=== PATIENT | female | born 1980 | race Caucasian/White ===

== ENCOUNTER 2017-12-21 09:40 | Emergency (ER) | payer MEDICAID ==
[~2017-12-21] VITALS: Ht 160 cm; Wt 99.3 kg
[~2017-12-21 09:40] MED LIST: ACHD5005 PO; ALBU8.5H4 IH; AMOX500C2 PO; BIRTH CONTROL; CEPH-38 PO; CEPH500C PO; CIPR500T78 PO; CLIN150C17 PO; CPR500T PO; CYCL10TA9 PO; DIPH1TAB45 PO; DOXY-182 PO; HCA25SU PR; HYDR-1231 PO; IBP800T PO; IBUP-1773 PO; LIPOSENE; LIPOZENE; METR500T PO; NAPR-243 PO; NAPR250T34 PO; NAPR550T PO; NITR-65 PO; OCP; ONDA-42 SL; ONDAN4ODT PO; PNT40TEC PO; PRM25T PO; SCR1T1 PO; SULF1TAB38 PO; TRAM-21 PO; TRM50T PO
[2017-12-21] MEDS ORDERED: DEXAMETHASONE 10 MG/ML (DECADRON) 1 ML VIAL IM STA (09:55)
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
[2017-12-21 10:12] VITALS: BP 124/78
== END 2017-12-21 10:12 | disposition home or self-care (01) ==
LOC: EDUNIT# 09:40 → ER 09:43
DX: J06.9 Acute upper respiratory infection, unspecified (principal); J45.909 Unspecified asthma, uncomplicated; F17.210 Nicotine dependence, cigarettes, uncomplicated; Z98.51 Tubal ligation status; Z87.448 Personal history of other diseases of urinary system
CPT/HCPCS: 96372; 99284

== ENCOUNTER 2018-06-01 08:06 | Emergency (ER) | payer MEDICAID ==
[~2018-06-01] VITALS: Ht 160 cm; Wt 81.6 kg
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
[2018-06-01] MEDS ORDERED: ANTACID SUSP 30 ML UDC (MYLANTA) PO ONE (08:30)
[2018-06-01] MEDS ORDERED: ONDANSETRON 4 MG (ZOFRAN) ORAL DISSOLVE TAB PO ONE (08:30)
[2018-06-01] MEDS ORDERED: LIDOCAINE 2% VISCOUS 15 ML UDC PO ONE (08:30)
[2018-06-01] MEDS ORDERED: OMEP20TA7 PO (08:45)
[2018-06-01] MEDS ORDERED: FAMO-119 PO (08:45)
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
[2018-06-01 09:00] VITALS: BP 150/80
== END 2018-06-01 09:00 | disposition home or self-care (01) ==
LOC: EDUNIT# 08:06 → ER 08:08
DX: K29.70 Gastritis, unspecified, without bleeding (principal); J45.909 Unspecified asthma, uncomplicated; F17.210 Nicotine dependence, cigarettes, uncomplicated; Z94.5 Skin transplant status; Z87.448 Personal history of other diseases of urinary system; Z98.51 Tubal ligation status; Z90.49 Acquired absence of other specified parts of digestive tract
CPT/HCPCS: 99283

== ENCOUNTER → 2018-08-07 | Outpatient (CLI) | payer MEDICAID ==
[~2018-08-07] MED LIST changes: -ACHD5005 PO; -ALBU8.5H4 IH; -AMOX500C2 PO; +BARIUM SUSPENSION 105% (LIQUID POLIBAR PLUS) 240 ML/DOSE PO ONE; +BARIUM SUSPENSION 60% (LIQUID EZ PAQUE) 240 ML DOSE PO ONE; -BIRTH CONTROL; -CEPH-38 PO; -CEPH500C PO; -CIPR500T78 PO; -CLIN150C17 PO; -CPR500T PO; -CYCL10TA9 PO; -DIPH1TAB45 PO; -DOXY-182 PO; -HCA25SU PR; -HYDR-1231 PO; -IBP800T PO; -IBUP-1773 PO; -LIPOSENE; -LIPOZENE; -METR500T PO; -NAPR-243 PO; -NAPR250T34 PO; -NAPR550T PO; -NITR-65 PO; -OCP; -ONDA-42 SL; -ONDAN4ODT PO; -PNT40TEC PO; -PRM25T PO; -SCR1T1 PO; -SULF1TAB38 PO; -TRAM-21 PO; -TRM50T PO
--- NOTE | 2018-08-07 10:58 | Diagnostic Imaging Report ---
INDICATION: Epigastric pain. FINDINGS: Patient ingested effervescent crystals as well as thin and thick barium and imaging of the esophagus, stomach and proximal small bowel was performed. The esophagus has a smooth contour. No mass or stricture is identified. No gastroesophageal reflux or hiatal hernia was demonstrated. Stomach has normal contour. There is prompt emptying of barium into the small bowel. The duodenal bulb is without deformity. No mass or ulceration is seen. Visualized small bowel loops are unremarkable. IMPRESSION: Unremarkable upper GI study. Dictated by: Dictated on workstation # [id number]
== END ==
LOC: RAD 09:04
PROVIDERS: ATTEND Family Medicine
DX: R10.13 Epigastric pain (principal)
CPT/HCPCS: 74241

== ENCOUNTER 2018-10-19 10:02 | Emergency (ER) | payer MEDICAID ==
[~2018-10-19] VITALS: Ht 160 cm; Wt 90.7 kg
[~2018-10-19 10:02] MED LIST changes: +ACHD5005 PO; +ALBU8.5H4 IH; +AMOX500C2 PO; -BARIUM SUSPENSION 105% (LIQUID POLIBAR PLUS) 240 ML/DOSE PO ONE; -BARIUM SUSPENSION 60% (LIQUID EZ PAQUE) 240 ML DOSE PO ONE; +BIRTH CONTROL; +CEPH-38 PO; +CEPH500C PO; +CIPR500T78 PO; +CLIN150C17 PO; +CPR500T PO; +CYCL10TA9 PO; +DIPH1TAB45 PO; +DOXY-182 PO; +FAMO-119 PO; +HCA25SU PR; +HYDR-1231 PO; +IBP800T PO; +IBUP-1773 PO; +LIPOSENE; +LIPOZENE; +METR500T PO; +NAPR-243 PO; +NAPR250T34 PO; +NAPR550T PO; +NITR-65 PO; +OCP; +OMEP20TA7 PO; +ONDA-42 SL; +ONDAN4ODT PO; +PNT40TEC PO; +PRM25T PO; +SCR1T1 PO; +SULF1TAB38 PO; +TRAM-21 PO; +TRM50T PO
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
[2018-10-19 10:38] LABS: BASOPHILS % (AUTO) 0 % (0-10); EOSINOPHILS # (AUTO) 0.2 10^3/uL (0.0-0.3); EOSINOPHILS % (AUTO) 1 % (0-10); HEMATOCRIT 44 % (35-52); HEMOGLOBIN 14.9 G/DL (11.5-16.0); LYMPHOCYTES # (AUTO) 2.7 X 10^3 (1.0-4.0); LYMPHOCYTES % (AUTO) 19 % (12-44); MEAN CORPUSCULAR HEMOGLOBIN 29 PG (25-34); MEAN CORPUSCULAR HGB CONC 34 G/DL (32-36); MEAN CORPUSCULAR VOLUME 84 FL (80-99); MEAN PLATELET VOLUME 10.6 FL (7.4-10.4); MONOCYTES # (AUTO) 0.8 X 10^3 (0.0-1.0); MONOCYTES % (AUTO) 6 % (0-12); NEUTROPHILS # (AUTO) 10.4 X 10^3 (1.8-7.8); NEUTROPHILS % (AUTO) 73 % (42-75); PLATELET COUNT 282 10^3/uL (130-400); RED CELL DISTRIBUTION WIDTH 14.2 % (10.0-14.5); WHITE BLOOD COUNT 14.2 10^3/uL (4.3-11.0)
[2018-10-19 10:39] LABS: BILIRUBIN,URINE NEGATIVE (NEGATIVE); CLARITY,URINE SLIGHTLY CLOUDY; COLOR,URINE YELLOW; GLUCOSE, URINE (UA) NEGATIVE (NEGATIVE); KETONES,URINE NEGATIVE (NEGATIVE); LEUKOCYTE ESTERASE ,URINE 1+ (NEGATIVE); NITRITE,URINE NEGATIVE (NEGATIVE); PH,URINE 6 (5-9); PROTEIN,URINE 1+ (NEGATIVE); UROBILINOGEN,URINE NORMAL (NORMAL)
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
[2018-10-19] MEDS ORDERED: fentaNYL INJECTION 100 MCG/2 ML AMP IVP ONE ×2 (10:45→12:30)
[2018-10-19 10:48] LABS: RBC,URINE 0-2 /HPF
[2018-10-19 10:49] LABS: BACTERIA,URINE FEW /HPF
[2018-10-19 10:50] LABS: ALANINE AMINOTRANSFERASE 20 U/L (0-55); ALBUMIN 4.6 GM/DL (3.2-4.5); ALKALINE PHOSPHATASE 133 U/L (40-136); BILIRUBIN,TOTAL 0.5 MG/DL (0.1-1.0); BUN/CREATININE RATIO 16; CALCIUM 9.9 MG/DL (8.5-10.1); CARBON DIOXIDE 19 MMOL/L (21-32); CHLORIDE 107 MMOL/L (98-107); CREATININE SERUM 0.67 MG/DL (0.60-1.30); GFR ESTIMATED > 60; GLUCOSE 93 MG/DL (70-105); LIPASE 16 U/L (8-78); POTASSIUM 3.9 MMOL/L (3.6-5.0); SODIUM 140 MMOL/L (135-145)
[2018-10-19 10:55] LABS: BAND NEUTROPHILS 2 %; LYMPHOCYTES % (MANUAL) 13 %; MONOCYTES % (MANUAL) 7 %; NEUTROPHILS % (MANUAL) 78 %; RBC MORPH NORMAL
[2018-10-19] MEDS ORDERED: IOHEXOL 350 MG/ML 100 ML (OMNIPAQUE 350) VIAL IV ONE (11:45)
[2018-10-19] MEDS ORDERED: HOLD METFORMIN - RECEIVED CONTRAST 20 ML VIAL IV SCH (11:45)
--- NOTE | 2018-10-19 11:55 | NUR ---
REPORT TO JESSE GAUTHIER
--- NOTE | 2018-10-19 12:12 | Diagnostic Imaging Report ---
PROCEDURE: CT abdomen and pelvis with contrast. TECHNIQUE: Multiple contiguous axial images were obtained through the abdomen and pelvis after administration of intravenous contrast. Auto Exposure Controls were utilized during the CT exam to meet ALARA standards for radiation dose reduction. INDICATION: Right-sided abdominal and lower back pain. COMPARISON: 05/20/2014 FINDINGS: The lungs demonstrate dependent atelectasis bilaterally. Heart is normal in size. There is no pericardial effusion. No focal hepatic lesions are seen. Cholecystectomy clips are noted. The spleen appears normal. Pancreas is normal. The adrenal glands appear normal. The kidneys demonstrate no focal lesions. There is a simple appearing 1.8 cm cyst in the left kidney. The bowel loops are nondistended without evidence of obstruction. The appendix is normal. There are small fat-containing periumbilical hernias without bowel involvement or fat stranding. There is a left ovarian cyst measuring 3 cm in diameter. Minimal free fluid is seen in the pelvis. No acute osseous abnormality is seen. There is stable sclerosis about the sacroiliac joints bilaterally, left greater than right, which may be due to chronic sacroiliitis or osteitis condensans ilii. IMPRESSION: 1. No bowel obstruction. No appendicitis. 2. Left ovarian cyst measuring 3 cm. 3. Small fat-containing periumbilical hernia. Dictated by: Dictated on workstation # [id number]
[2018-10-19] MEDS ORDERED: KETOROLAC 30 MG/ML VIAL IVP ONE (12:30)
[2018-10-19] MEDS ORDERED: LIDOCAINE 2% VISCOUS 15 ML UDC PO ONE (12:45)
[2018-10-19] MEDS ORDERED: ANTACID SUSP 30 ML UDC (MYLANTA) PO ONE (12:45)
[2018-10-19] MEDS ORDERED: OMEP20CA12 PO (12:50)
[2018-10-19 13:31] VITALS: BP 118/67
== END 2018-10-19 13:30 | disposition home or self-care (01) ==
LOC: EDUNIT# 10:02 → ER 10:04
DX: R10.11 Right upper quadrant pain (principal); J45.909 Unspecified asthma, uncomplicated; F17.210 Nicotine dependence, cigarettes, uncomplicated; Z90.49 Acquired absence of other specified parts of digestive tract; Z98.51 Tubal ligation status; Z94.5 Skin transplant status; Z87.19 Personal history of other diseases of the digestive system
CPT/HCPCS: 36415; 74177; 80053; 81000; 83690; 84703; 85007; 85027; 87088